=== PATIENT | male | born 1950 | race Caucasian/White ===

== ENCOUNTER 2017-11-24 19:46 | Emergency (ER) | payer MEDICARE, OTHER ==
[2017-11-24] MEDS ORDERED: ONDANSETRON HCL 4 MG/2 ML SOL IV ONE (20:00)
[2017-11-24] MEDS ORDERED: MORPHINE SULFATE 10 MG/ML SOL IV ONE (20:00)
[2017-11-24] MEDS ORDERED: MORPHINE SULFATE 10 MG/ML SOL ONE (20:01)
[2017-11-24] MEDS ORDERED: ONDANSETRON HCL 4 MG/2 ML SOL ONE (20:02)
[2017-11-24] MEDS ORDERED: SODIUM CHLORIDE 0.9% FLUSH 10 ML SOL IV PRN (20:05)
[2017-11-24] MEDS ORDERED: KETOROLAC TROMETHAMINE 30 MG/ML SOL ONE (20:19)
[2017-11-24] MEDS ORDERED: KETOROLAC TROMETHAMINE 30 MG/ML SOL IV ONE (20:19)
[2017-11-24 20:26] VITALS: TEMP 97.7
[2017-11-24] MEDS: SODIUM CHLORIDE 0.9% 1000ML 1,000 ML IV SCH ×3 (20:30→22:32)
[2017-11-24 20:38] LABS: CALCIUM 8.6 mg/dl (8.5-10.1); GLOM FILT RATE 38 mL/min (>60); HEMATOCRIT 28 % (39-53); MEAN CORPUSCULAR HGB CONC 32.6 gm/dl (32.0-36.0); POTASSIUM 3.6 mMol/L (3.5-5.1); SODIUM 139 mMol/L (136-145)
[2017-11-24] MEDS ORDERED: POLYETHYLENE GLYCOL 17 GM/1 TBS PDS ONE ×2 (21:28)
[2017-11-24] MEDS ORDERED: POLYETHYLENE GLYCOL 17 GM/1 TBS PDS PO SCH (21:30)
[2017-11-24 21:39] LABS: MEAN CORPUSCULAR VOLUME 105 fL (80-100)
[2017-11-24 21:48] LABS: BASOPHILS % (MANUAL) 0 % (0-3); EOSINOPHILS % (MANUAL) 3 % (0-9); LYMPHOCYTES % (MANUAL) 66 % (10-50); NUCLEATED RED BLOOD CELLS 54 /100WBCS
[2017-11-24 21:49] LABS: ANISOCYTOSIS MOD AMT; OVALOCYTES PRESENT
[2017-11-24 22:00] VITALS: BP 118/70; PULSE 76; RESP 19; O2SAT 98
== END 2017-11-24 23:03 | disposition home or self-care (01) | DRG 392 ==
LOC: ED 19:46
DX: K29.70 Gastritis, unspecified, without bleeding (principal); K59.00 Constipation, unspecified
CPT/HCPCS: 80048; 80307; 82150; 85007; 85027; 99285; J1885; J2270; J2405